=== PATIENT | male | born 1990 | race Caucasian/White ===

== ENCOUNTER 2017-03-30 21:32 | Inpatient (IN) | payer MEDICAID, OTHER ==
[2017-03-30 21:32] VITALS: BMI 23.6
[2017-03-30] MEDS ORDERED: Sodium Chloride 0.9% 1,000 ML IV STA (21:50)
[2017-03-30] MEDS ORDERED: Morphine 4 mg/ml ISec IVP STA (21:50)
[2017-03-30] MEDS ORDERED: Iohexol 240 (50 ml) ONE (22:00)
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
[2017-03-30 22:26] LABS: BASO # 0.01 K/mm3 (0.0-2.0); BASO % 0.1 % (0.0-3.0); EOS % 0.1 % (1.5-5.0); GRAN # 12.93 (1.4-6.5); GRAN % 84.1 % (50.0-68.0); HEMATOCRIT 45.7 % (42.0-52.0); LYMPH # 1.6 (1.2-3.4); LYMPH % 10.3 % (22.0-35.0); MEAN CELL VOLUME 90.9 fl (80.0-105.0); MEAN CORPUSCULAR HEMOGLOBIN 31.6 pg (25.0-35.0); MEAN CORPUSCULAR HGB CONC 34.8 g/dl (31.0-37.0); MEAN PLATELET VOLUME 9.8 fl (7.0-11.0); MONO # 0.8 (0.1-0.6); MONO % 5.4 % (1.0-6.0); RED CELL DISTRIBUTION WIDTH 13.3 % (11.5-14.5); WHITE BLOOD COUNT 15.4 10^3/ul (4.5-11.0)
[2017-03-30 22:35] LABS: INR 1.08 (0.93-1.08)
[2017-03-30 22:36] LABS: PARTIAL THROMBOPLASTIN TIME 31.4 Seconds (25.1-36.5)
[2017-03-30 22:45] LABS: ALB/GLOB RATIO 1.4 (1.1-1.8); ALKALINE PHOSPHATASE 66 U/L (38-126); ALT/SGPT 117 U/L (7-56); AST/SGOT 59 U/L (17-59); BILIRUBIN,TOTAL 0.8 mg/dL (0.2-1.3); BLOOD UREA NITROGEN 13 mg/dL (7-21); CALCIUM 9.7 mg/dL (8.4-10.5); CARBON DIOXIDE 26 mmol/L (21-33); CHLORIDE 104 mmol/L (98-107); GFR AFRICAN-AMERICAN > 60; GLUCOSE,RANDOM 94 mg/dL (70-110); LIPASE 52 U/L (23-300); SODIUM 139 mmol/L (132-148); TOTAL PROTEIN 7.9 g/dL (5.8-8.3)
[2017-03-31] MEDS ORDERED: Iohexol 350 MG/100 ML VIAL ONE (00:05)
--- NOTE | 2017-03-31 01:03 | CT ---
EXAM: CT Abdomen and Pelvis With Intravenous Contrast CLINICAL HISTORY: 27 years old, male; Pain; Abdominal pain; Flank; Right lower quadrant (rlq); Additional info: Rlq pain TECHNIQUE: Axial computed tomography images of the abdomen and pelvis with intravenous contrast. All CT scans at this facility use one or more dose reduction techniques, viz.: automated exposure control; ma/kV adjustment per patient size (including targeted exams where dose is matched to indication; i.e. head); or iterative reconstruction technique. 769 images are submitted. Oral contrast was administered.2 sets of Sagittal and coronal MPR reformatted images are submitted. CONTRAST: 96 mL of OMNI 350 administered intravenously. COMPARISON: No relevant prior studies available. FINDINGS: Lower thorax: There is elevation of right hemidiaphragm. ABDOMEN: Liver: Fatty liver. Gallbladder and bile ducts: Unremarkable. No ductal dilation. Pancreas: Unremarkable. No mass. No ductal dilation. Spleen: Unremarkable. No splenomegaly. Adrenals: Unremarkable. No mass. Kidneys and ureters: Unremarkable. No solid mass. No hydronephrosis. Stomach and bowel: Nonspecific colonic thickening likely due to under distention versus nonspecific colitis. Appendix: The appendix demonstrates diffuse distention, consistent with acute appendicitis. The appendix measures 1.2 cm and no appendicolith. PELVIS: Bladder: Partially distended bladder. Reproductive: Unremarkable. ABDOMEN and PELVIS: Intraperitoneal space: Unremarkable. No free air. No significant fluid collection. 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 No acute fracture. No dislocation. Soft tissues: Unremarkable. Vasculature: Unremarkable. No abdominal aortic aneurysm. Lymph nodes: Multiple subcentimeter mesenteric and ileocolic lymph nodes. Findings are nonspecific but may represent mesenteric adenitis. IMPRESSION: 1. The appendix demonstrates diffuse distention, consistent with acute appendicitis. The appendix measures 1.2 cm and no appendicolith.
[2017-03-31] MEDS ORDERED: metroNIDAZOLE IV 500 mg/100 ml 500 MG/100 ML BAG IVPB STA (01:20)
[2017-03-31] MEDS ORDERED: cefTRIAXone 1 gm 1 GM/100 ML BAG IVPB STA (01:20)
[2017-03-31] MEDS ORDERED: Sodium Chloride 0.9% 1,000 ML IV SCH (01:45)
--- NOTE | 2017-03-31 01:57 | CP.PCM.HP ---
History of Present Illness - History of Present Illness History of Present Illness: This is a 26M with No PMH or PSH who presents with one day history of vague abdominal pain which started yesterday morning. It had gotten worse and localized to the RLQ throughout the day. He reports decreased apetitis and 4 episodes of non bloody non bilious emesis. He denies any fevers at home. CT scan in the Ed was significant for acute appendicitis. PMH:None PSH: None Meds: None All: None Soc: Denies tobacco, Etoh, Drugs Present on Admission - Present on Admission Any Indicators Present on Admission: No Review of Systems - Constitutional Constitutional: Anorexia. absent: Chills - EENT Eyes: absent: Blind Spots, Blurred Vision, Change in Vision Nose/Mouth/Throat: absent: Epistaxis, Nasal Congestion - Cardiovascular Cardiovascular: absent: Chest Pain - Respiratory Respiratory: absent: Chest Congestion - Gastrointestinal Gastrointestinal: Abdominal Pain, Vomiting - Genitourinary Genitourinary: absent: Change in Urinary Stream, Difficulty Urinating, Dysuria - Integumentary Integumentary: absent: Non-Healing Lesions - Neurological Neurological: absent: Dizziness, Focal Weakness Past Patient History - Infectious Disease Hx of Infectious Diseases: None - Tetanus Immunizations Tetanus Immunization: Unknown - Past Social History Smoking Status: Current Some Days Smoker - PSYCHIATRIC Hx Depression: No Hx Emotional Abuse: No Hx Physical Abuse: No Hx Substance Use: No Meds Allergies/Adverse Reactions: Allergies Allergy/AdvReac Type Severity Reaction Status Date / Time No Known Allergies Allergy Verified 11/16/12 17:11 Physical Exam - Constitutional Appears: Non-toxic, No Acute Distress - Head Exam Head Exam: ATRAUMATIC, NORMOCEPHALIC - Eye Exam Eye Exam: EOMI, Normal appearance - ENT Exam ENT Exam: Mucous Membranes Moist - Respiratory Exam Respiratory Exam: NORMAL BREATHING PATTERN - Cardiovascular Exam Cardiovascular Exam: REGULAR RHYTHM - GI/Abdominal Exam GI & Abdominal Exam: Soft, Tenderness. absent: Guarding, Rebound, Rigid - Neurological Exam Neurological exam: Alert, Oriented x3 - Psychiatric Exam Psychiatric exam: Normal Affect, Normal Mood - Skin Skin Exam: Dry, Intact Results - Vital Signs Recent Vital Signs: Last Vital Signs Temp 98.6 F 03/30/17 21:42 Pulse 69 03/31/17 01:41 Resp 18 03/31/17 01:41 BP 117/79 03/31/17 01:41 Pulse Ox 99 03/31/17 01:41 - Labs Result Diagrams: 03/30/17 21:16 03/30/17 21:16 Labs: Laboratory Results - last 24 hr 03/30/17 03/30/17 03/30/17 21:16 21:16 21:16 WBC 15.4 H RBC 5.03 Hgb 15.9 Hct 45.7 MCV 90.9 MCH 31.6 MCHC 34.8 RDW 13.3 Plt Count 233 MPV 9.8 Gran % 84.1 H Lymph % (Auto) 10.3 L [place] % (Auto) 5.4 Eos % (Auto) 0.1 L Baso % (Auto) 0.1 Gran # 12.93 H Lymph # 1.6 [place] # 0.8 H Eos # 0.0 Baso # 0.01 PT 11.8 INR 1.08 APTT 31.4 Sodium 139 Potassium 4.0 Chloride 104 Carbon Dioxide 26 Anion Gap 13 BUN 13 Creatinine 0.8 Est GFR ( Amer) > 60 Est GFR (Non-Af Amer) > 60 Random Glucose 94 Calcium 9.7 Total Bilirubin 0.8 AST 59 ALT 117 H Alkaline Phosphatase 66 Total Protein 7.9 Albumin 4.6 Globulin 3.3 Albumin/Globulin Ratio 1.4 Lipase 52 Assessment & Plan - Assessment and Plan (Free Text) Assessment: This is a 27M with acute appendicitis OR today for lap appendectomy NPO IVF Abx D/W Dr. Gurjit Varner PGY2
[2017-03-31] MEDS: Morphine 2 mg/ml ISec IVP PRN ×5 (04:19→23:32)
[2017-03-31 04:26] LABS: URINE BILIRUBIN NEGATIVE (NEGATIVE); URINE BLOOD NEGATIVE (NEGATIVE); URINE GLUCOSE (UA) NEGATIVE (NEGATIVE); URINE KETONE NEGATIVE (NEGATIVE); URINE LEUKOCYTE ESTERASE NEGATIVE Leu/uL (NEGATIVE); URINE PROTEIN 100 mg/dL (<30 mg/dL); URINE UROBILINOGEN 0.2 E.U./dL (<1 E.U./dL)
[2017-03-31 04:39] LABS: URINE APPEARANCE CLEAR (CLEAR); URINE COLOR YELLOW (YELLOW)
[2017-03-31 04:42] LABS: URINE RBC 0 - 2 /hpf (0-2); URINE WBC 0 - 2 /hpf (0-6)
[2017-03-31 04:43] LABS: URINE EPITHELIAL CELLS 0 - 2 /hpf (0-5)
[2017-03-31] MEDS ORDERED: metroNIDAZOLE IV 500 mg/100 ml 500 MG/100 ML BAG IVPB SCH ×2 (06:00→10:30)
--- NOTE | 2017-03-31 08:37 | RAD ---
HISTORY: cp COMPARISON: No prior. FINDINGS: LUNGS: No active pulmonary disease. PLEURA: No significant pleural effusion identified, no pneumothorax apparent. CARDIOVASCULAR: Normal. OSSEOUS STRUCTURES: No significant abnormalities. VISUALIZED UPPER ABDOMEN: Normal. OTHER FINDINGS: None. IMPRESSION: No active disease.
[2017-03-31] MEDS ORDERED: Propofol 10 mg/ml Inj (20 ML) ONE (12:21)
[2017-03-31] MEDS ORDERED: Midazolam 2 MG/2 ML VIAL ONE (12:21)
[2017-03-31] MEDS ORDERED: Succinylcholine 200 mg/10 ml Inj IV ONE (12:26)
[2017-03-31] MEDS ORDERED: Lidocaine 2% Inj (20ml) ONE (12:26)
[2017-03-31] MEDS ORDERED: Rocuronium 10 mg/ml (5 ml) ONE (12:26)
[2017-03-31] MEDS ORDERED: Neostigmine Methylsulfate 3mg/3ml Syringe IV ONE (13:06)
[2017-03-31] MEDS ORDERED: Glycopyrrolate 0.2 mg/ml (2ml vial) ONE (13:07)
[2017-03-31] MEDS ORDERED: Oxycodone/Acetaminophen 5/325 mg Tab PO PRN (14:14)
--- NOTE | 2017-03-31 14:17 | PCM.SURG1 ---
Surgeon's Initial Post Op Note - Surgeon's Notes Surgeon: Dr. Cagle Central Processing Technician: Dr. Hernández, PGY-3 Type of Anesthesia: General Endo Anesthesia Administered By: Dr. Garcia Pre-Operative Diagnosis: Acute Appendicitis Operative Findings: See operative dictation Post-Operative Diagnosis: Same Operation Performed: Laparoscopic Appendectomy Specimen/Specimens Removed: Appendix Estimated Blood Loss: EBL {In ML}: 15 Blood Products Given: N/A Drains Used: No Drains Post-Op Condition: Good Date of Surgery/Procedure: 03/31/17 Time of Surgery/Procedure: 14:16
[2017-03-31] MEDS ORDERED: HYDROmorphone 0.5 mg/0.5 ml ISec IVP ONE ×2 (14:19→14:50)
[2017-03-31] MEDS ORDERED: HYDROmorphone 0.5 mg/0.5 ml ISec ONE ×3 (14:20→14:50)
[2017-03-31] MEDS ORDERED: Lactated Ringer's 1,000 ML IV SCH (14:30)
[2017-03-31] MEDS: HYDROmorphone 0.5 mg/0.5 ml ISec SC PRN ×2 (14:35→14:37)
[2017-03-31 16:27] VITALS: O2SAT 97
[2017-04-01] MEDS: Morphine 2 mg/ml ISec IVP PRN ×2 (03:30→08:00)
[2017-04-01 07:19] LABS: HEMATOCRIT 42.9 % (42.0-52.0); MEAN CELL VOLUME 90.9 fl (80.0-105.0); MEAN CORPUSCULAR HEMOGLOBIN 31.1 pg (25.0-35.0); MEAN CORPUSCULAR HGB CONC 34.3 g/dl (31.0-37.0); MEAN PLATELET VOLUME 9.8 fl (7.0-11.0); RED CELL DISTRIBUTION WIDTH 13.1 % (11.5-14.5); WHITE BLOOD COUNT 9.9 10^3/ul (4.5-11.0)
--- NOTE | 2017-04-01 07:37 | CP.PCM.DIS ---
Provider - Provider Date of Admission: 03/31/17 01:27 Attending physician: Becca Cagle MD Time Spent in preparation of Discharge (in minutes): 5 Diagnosis - Discharge Diagnosis (1) Acute appendicitis Status: Resolved Priority: High Onset Date: ~03/30/17 Hospital Course - Lab Results Lab Results: Most Recent Lab Values WBC 9.9 10^3/ul (4.5-11.0) D 04/01/17 06:30 RBC 4.72 10^6/uL (3.5-6.1) 04/01/17 06:30 Hgb 14.7 g/dL (14.0-18.0) 04/01/17 06:30 Hct 42.9 % (42.0-52.0) 04/01/17 06:30 MCV 90.9 fl (80.0-105.0) 04/01/17 06:30 MCH 31.1 pg (25.0-35.0) 04/01/17 06:30 MCHC 34.3 g/dl (31.0-37.0) 04/01/17 06:30 RDW 13.1 % (11.5-14.5) 04/01/17 06:30 Plt Count 217 10^3/uL (120.0-450.0) 04/01/17 06:30 MPV 9.8 fl (7.0-11.0) 04/01/17 06:30 Gran % 84.1 % (50.0-68.0) H 03/30/17 21:16 Lymph % (Auto) 10.3 % (22.0-35.0) L 03/30/17 21:16 [place] % (Auto) 5.4 % (1.0-6.0) 03/30/17 21:16 Eos % (Auto) 0.1 % (1.5-5.0) L 03/30/17 21:16 Baso % (Auto) 0.1 % (0.0-3.0) 03/30/17 21:16 Gran # 12.93 (1.4-6.5) H 03/30/17 21:16 Lymph # 1.6 (1.2-3.4) 03/30/17 21:16 [place] # 0.8 (0.1-0.6) H 03/30/17 21:16 Eos # 0.0 (0.0-0.7) 03/30/17 21:16 Baso # 0.01 K/mm3 (0.0-2.0) 03/30/17 21:16 PT 11.8 SECONDS (9.4-12.5) 03/30/17 21:16 INR 1.08 (0.93-1.08) 03/30/17 21:16 APTT 31.4 Seconds (25.1-36.5) 03/30/17 21:16 Sodium 139 mmol/L (132-148) 03/30/17 21:16 Potassium 4.0 mmol/L (3.6-5.0) 03/30/17 21:16 Chloride 104 mmol/L (98-107) 03/30/17 21:16 Carbon Dioxide 26 mmol/L (21-33) 03/30/17 21:16 Anion Gap 13 (10-20) 03/30/17 21:16 BUN 13 mg/dL (7-21) 03/30/17 21:16 Creatinine 0.8 mg/dl (0.8-1.5) 03/30/17 21:16 Est GFR ( Amer) > 60 03/30/17 21:16 Est GFR (Non-Af Amer) > 60 03/30/17 21:16 Random Glucose 94 mg/dL (70-110) 03/30/17 21:16 Calcium 9.7 mg/dL (8.4-10.5) 03/30/17 21:16 Total Bilirubin 0.8 mg/dL (0.2-1.3) 03/30/17 21:16 AST 59 U/L (17-59) 03/30/17 21:16 ALT 117 U/L (7-56) H 03/30/17 21:16 Alkaline Phosphatase 66 U/L (38-126) 03/30/17 21:16 Total Protein 7.9 g/dL (5.8-8.3) 03/30/17 21:16 Albumin 4.6 g/dL (3.0-4.8) 03/30/17 21:16 Globulin 3.3 gm/dL 03/30/17 21:16 Albumin/Globulin Ratio 1.4 (1.1-1.8) 03/30/17 21:16 Lipase 52 U/L (23-300) 03/30/17 21:16 Urine Color Yellow (YELLOW) 03/31/17 03:30 Urine Appearance Clear (CLEAR) 03/31/17 03:30 Urine pH 6.0 (4.7-8.0) 03/31/17 03:30 Ur Specific [place] <= 1.005 (1.005-1.035) 03/31/17 03:30 Urine Protein 100 mg/dL (<30 mg/dL) H 03/31/17 03:30 Urine Glucose (UA) Negative mg/dL (NEGATIVE) 03/31/17 03:30 Urine Ketones Negative mg/dL (NEGATIVE) 03/31/17 03:30 Urine Blood Negative (NEGATIVE) 03/31/17 03:30 Urine Nitrate Negative (NEGATIVE) 03/31/17 03:30 Urine Bilirubin Negative (NEGATIVE) 03/31/17 03:30 Urine Urobilinogen 0.2 E.U./dL (<1 E.U./dL) 03/31/17 03:30 Ur Leukocyte Esterase Negative [place]/uL (NEGATIVE) 03/31/17 03:30 Urine RBC 0 - 2 /hpf (0-2) 03/31/17 03:30 Urine WBC 0 - 2 /hpf (0-6) 03/31/17 03:30 Ur Epithelial Cells 0 - 2 /hpf (0-5) 03/31/17 03:30 Urine Bacteria Curtain Framer 03/31/17 03:30 - Hospital Course Hospital Course: 27M with no past medical or surgical hx that presented to [facility] with complaints of localized RLQ pain & nausea x [address] abdomen/pelvis was obtained in the ER and showed findings consistent with acute appendicitis. Pt was taken to the OR on 03/31 for lap appendectomy. He tolerated the surgery well and this morning he's POD#1. States he feels well and pain is well controlled. Pt is urinating and tolerating his diet. Will DC home with f/u outpt in 1-[address] Cagle for suture removal. Discharge Exam - Head Exam Head Exam: ATRAUMATIC, NORMOCEPHALIC - Eye Exam Eye Exam: Normal appearance - ENT Exam ENT Exam: Mucous Membranes Moist - Respiratory Exam Respiratory Exam: NORMAL BREATHING PATTERN - Cardiovascular Exam Cardiovascular Exam: RRR - GI/Abdominal Exam GI & Abdominal Exam: Soft, Tenderness (around incision sites, C/D/I ). absent: Distended - Neurological Exam Neurological exam: Alert, Oriented x3 - Skin Skin Exam: Dry, Warm Discharge Plan - Follow Up Plan Condition: GOOD Additional Instructions: f/u with Dr. Cagle in 1-2 weeks for suture removal. No heavy lifting > 15lbs for 4 weeks. Ok to shower, keep incisions dry and clean.
[2017-04-01 08:01] LABS: BLOOD UREA NITROGEN 10 mg/dL (7-21); CALCIUM 8.7 mg/dL (8.4-10.5); CARBON DIOXIDE 21 mmol/L (21-33); CHLORIDE 103 mmol/L (98-107); GFR AFRICAN-AMERICAN > 60; GLUCOSE,RANDOM 71 mg/dL (70-110); SODIUM 135 mmol/L (132-148)
[2017-04-01 09:18] VITALS: BP 104/51; PULSE 62; RESP 20; TEMP 98.9
--- NOTE | 2017-04-01 18:31 | OP ---
PROCEDURE DATE: 03/31/2017 PREOPERATIVE DIAGNOSIS: Acute appendicitis. POSTOPERATIVE DIAGNOSIS: Acute appendicitis. PROCEDURE: Laparoscopic appendectomy. SURGEON: Becca Cagle MD BASS GUITAR TEACHER: Dr. Hernández TYPE OF ANESTHESIA: General. ANESTHESIA ADMINISTERED BY: Dr. Garcia. DESCRIPTION OF PROCEDURE: With the patient in the supine position under adequate general anesthesia, the abdomen was prepped and draped in the usual sterile manner. Varus needle puncture was performed in the umbilicus with insufflation to 15 cm water pressure of CO2 and a 10 mm trocar was inserted via an infraumbilical incision. Under direct vision, 5 and 12 mm trocars were inserted in the left lower quadrant. The appendix was identified in the right iliac fossa covered by loosely adherent omentum, which was peeled away easily. The appendix was acutely inflamed and indurated and as it was freed from the pelvic sidewall, it was noted that a loop of terminal ileum encircled the appendix and was fixated also to the pelvic sidewall lateral to the cecum. This was gently freed up to allow the entire length of the appendix to be exposed. The mesoappendix was then identified and dissected. It was divided with a combination of Endo LUTHER stapler and hemoclips and the appendix itself was then divided close to the cecum using the Endo LUTHER stapler. The appendix was placed in a specimen retrieval bag and removed via the 12 mm port site. The right lower quadrant was irrigated and suctioned. The pneumoperitoneum was released and the trocars were removed. The 12 mm and umbilical port sites were closed with [id number] fascial sutures of 0 Vicryl. All incisions were closed with 4-0 Monocryl subcuticular sutures and Steri-Strips. Dry sterile dressings were applied. The patient tolerated the procedure well and transferred to the recovery room in stable condition. Estimated blood loss for the procedure was 15 mL. Becca Cagle MD [facility] # [id number]
== END 2017-04-01 16:00 | disposition home or self-care (01) | DRG 343 ==
LOC: ED 21:32 → ERH 03-31 01:27 → 5RSO 03-31 02:32
PROVIDERS: ADMIT Specialist; ATTEND Specialist
PROC: 0DTJ4ZZ Resection of Appendix, Percutaneous Endoscopic Approach (ICD-10-PCS; principal; 2017-03-31 12:00)
DX: K35.80 Unspecified acute appendicitis (principal); K76.0 Fatty (change of) liver, not elsewhere classified; R40.2412 Glasgow coma scale score 13-15, at arrival to emergency department; Z87.891 Personal history of nicotine dependence

== ENCOUNTER 2017-04-04 16:40 | Emergency (ER) | payer MEDICAID, OTHER ==
[2017-04-04 17:13] VITALS: RESP 18; TEMP 98; BMI 21.5
[2017-04-04] MEDS ORDERED: Sodium Chloride 0.9% 1,000 ML IV STA (17:51)
[2017-04-04 17:52] LABS: BASO # 0.04 K/mm3 (0.0-2.0); BASO % 0.6 % (0.0-3.0); EOS # 0.1 (0.0-0.7); EOS % 1.4 % (1.5-5.0); GRAN # 3.53 (1.4-6.5); GRAN % 54.8 % (50.0-68.0); HEMATOCRIT 47.8 % (42.0-52.0); LYMPH # 2.3 (1.2-3.4); LYMPH % 35.9 % (22.0-35.0); MEAN CELL VOLUME 92.1 fl (80.0-105.0); MEAN CORPUSCULAR HGB CONC 34.7 g/dl (31.0-37.0); MEAN PLATELET VOLUME 9.9 fl (7.0-11.0); MONO # 0.5 (0.1-0.6); MONO % 7.3 % (1.0-6.0); RED CELL DISTRIBUTION WIDTH 13.2 % (11.5-14.5); WHITE BLOOD COUNT 6.4 10^3/ul (4.5-11.0)
[2017-04-04] MEDS ORDERED: Morphine 2 mg/ml ISec IVP STA (17:54)
[2017-04-04 18:11] LABS: ALB/GLOB RATIO 1.3 (1.1-1.8); ALKALINE PHOSPHATASE 58 U/L (38-126); ALT/SGPT 93 U/L (7-56); AST/SGOT 65 U/L (17-59); BILIRUBIN,TOTAL 0.7 mg/dL (0.2-1.3); BLOOD UREA NITROGEN 14 mg/dL (7-21); CARBON DIOXIDE 28 mmol/L (21-33); CHLORIDE 104 mmol/L (98-107); GFR AFRICAN-AMERICAN > 60; GLUCOSE,RANDOM 90 mg/dL (70-110); LIPASE 35 U/L (23-300); POTASSIUM 5.1 mmol/L (3.6-5.0); SODIUM 140 mmol/L (132-148); TOTAL PROTEIN 8.2 g/dL (5.8-8.3)
[2017-04-04] MEDS ORDERED: Iohexol 350 MG/100 ML VIAL ONE (18:13)
[2017-04-04 18:26] LABS: PH,URINE 6.5 (4.7-8.0); URINE BILIRUBIN NEGATIVE (NEGATIVE); URINE BLOOD NEGATIVE (NEGATIVE); URINE GLUCOSE (UA) NEGATIVE (NEGATIVE); URINE KETONE NEGATIVE (NEGATIVE); URINE LEUKOCYTE ESTERASE NEGATIVE Leu/uL (NEGATIVE); URINE PROTEIN NEGATIVE mg/dL (<30 mg/dL); URINE UROBILINOGEN 0.2 E.U./dL (<1 E.U./dL)
[2017-04-04 18:27] LABS: URINE APPEARANCE CLEAR (CLEAR); URINE COLOR YELLOW (YELLOW)
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
[2017-04-04 19:24] VITALS: BP 104/71; PULSE 67; O2SAT 100
--- NOTE | 2017-04-04 19:37 | CT ---
PROCEDURE: CT Abdomen and Pelvis with contrast HISTORY: abd pain s/p appy Relevant surgical history: Recent appendectomy/4 days ago by history provided COMPARISON: 03/31/2017 TECHNIQUE: Contrast dose: 100 cc Omnipaque 350 Radiation dose: Total exam DLP = 298.97 mGy-cm. This CT exam was performed using one or more of the following dose reduction techniques: Automated exposure control, adjustment of the mA and/or kV according to patient size, and/or use of iterative reconstruction technique. FINDINGS: LOWER THORAX: Unremarkable. LIVER: Hepatic steatosis. No focal masses. No intrahepatic bile duct dilatation or perihepatic ascites. GALLBLADDER AND BILE DUCTS: Unremarkable. PANCREAS: Unremarkable. No gross lesion or ductal dilatation. SPLEEN: Unremarkable. ADRENALS: Unremarkable. No mass. KIDNEYS AND URETERS: Unremarkable. No hydronephrosis. No solid mass. VASCULATURE: Unremarkable. No aortic aneurysm. BOWEL: Unremarkable. No obstruction. No gross mural thickening. APPENDIX: Postoperative findings/surgical clips right lower quadrant, base of cecum. PERITONEUM: Trace fluid in the pelvis likely postoperative in nature. LYMPH NODES: Unremarkable. No enlarged lymph nodes. BLADDER: Unremarkable. REPRODUCTIVE: Unremarkable. BONES: No acute fracture. OTHER FINDINGS: None. IMPRESSION: Expected postoperative findings right lower quadrant/ pelvis.No acute findings related to/accounting for the clinical presentation.
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
== END 2017-04-04 19:59 | disposition home or self-care (01) ==
LOC: ED 16:40
DX: R10.9 Unspecified abdominal pain (principal)
CPT/HCPCS: 74177; 80053; 81003; 83690; 85025; 96361; 96374; 99284; J2270; J7040; Q9967